=== PATIENT | female | born 1985 | race Caucasian/White ===

== ENCOUNTER 2016-12-31 09:17 | Emergency (ER) | payer BC, OTHER ==
[~2016-12-31] VITALS: Ht 172.7 cm; Wt 107.0 kg
[2016-12-31 09:19] VITALS: TEMP 36.6; Ht 172.7 cm; Wt 107.0 kg
[2016-12-31] MEDS ORDERED: ONDANSETRON INJ 2 MG/ML 2 ML VIAL ONE (09:36)
[2016-12-31] MEDS ORDERED: ONDANSETRON INJ 2 MG/ML 2 ML VIAL IV STA (09:39)
[2016-12-31 09:53] LABS: BASO % 0.1 %; BASO ABS # 0.01 K/uL (0-0.2); COMPLETE YES; EOS % 2.7 %; HEMATOCRIT 43.1 % (37-47); IG% 0.1 %; LYMPH % 20.8 %; LYMPH ABS # 1.63 K/uL (1.2-3.4); MEAN CELL VOLUME 81.8 fL (80-100); MEAN CORPUSCULAR HEMOGLOBIN 29.2 pg (25-34); MEAN CORPUSCULAR HGB CONC 35.7 g/dl (32-36); MEAN PLATELET VOLUME 12.5 fL (7.4-10.4); MONO % 5.2 %; NEUT % 71.1 %; PLATELET COUNT 168 K/uL (130-400); RED BLOOD COUNT 5.27 M/uL (4.2-5.4); WHITE BLOOD COUNT 7.82 K/uL (4.8-10.8)
[2016-12-31 10:10] LABS: BUN/CREATININE RATIO 19.4 (10-20); CALCIUM 9.3 mg/dl (8.5-10.1); CREATININE 0.8 mg/dl (0.60-1.20); POTASSIUM 3.4 mmol/L (3.5-5.1)
[2016-12-31 10:21] LABS: URINE APPEARANCE CLEAR (CLEAR); URINE COLOR DK YELLOW; URINE EPITHELIAL CELL AUTO >30 /lpf (0-5); URINE NITRITE NEG (NEG); URINE PH 5.5 (4.5-7.5); UROBILINOGEN NEG (NEG); ZZUR CULT IF INDIC CLEAN CATCH NO
[2016-12-31] MEDS ORDERED: ACET-1256 PO (10:25)
[2016-12-31 10:26] LABS: MANUAL MICROSCOPIC REQUIRED? NO; REVIEW REQ? NO; URINE BILIRUBIN NEG (NEG)
[2016-12-31] MEDS ORDERED: PROMETHAZINE HCL INJ 12.5 MG in SODIUM CHLORIDE 0.9% 50ML 50 ML IV STA (10:31)
[2016-12-31] MEDS ORDERED: MoRPHine SULFATE 4 MG/ML 1 ML CARP\\VIAL IV STA ×2 (10:31→12:13)
[2016-12-31] MEDS ORDERED: SODIUM CHLORIDE 0.9% 1000ML 1,000 ML IV STA (10:31)
--- NOTE | 2016-12-31 10:34 | EMERGENCY ROOM VISIT NOTE ---
History Report prepared by Pavan: Angie Montez Under the Supervision of: Dr. Clarisa Herrera M.D. First contact with patient: 09:53 Chief Complaint: ABDOMINAL PAIN Stated Complaint: ABD. PAIN Nursing Triage Summary: Patietn c/o right lower quadrant abdominal pain and frequent vomiting for a couple hours. Pt vomited 3 times within approx 5 minutes while RN in room. Patient denies urinary symptoms, fevers, diarrhea. History of Present Illness The patient is a 31 year old female who presents to the Emergency Room with complaints of persistent right lower abdominal pain that began this morning when she woke. The patient reports that she woke this morning with abdominal pain, nausea and vomiting. She states that she continually vomited for an hour. The patient denies any chance of , noting that she just ended her period, but additionally notes vaginal bleeding today. She denies any urinary symptoms or history of kidney stones. The patient reports right flank pain. She denies any previous surgeries on her abdomen. The patient denies any diarrhea. Source of History: patient Onset: this morning whne she woke Position: abdomen (RLQ) Timing: other (persistent) Associated Symptoms: + nausea, + vomiting, + back pain, No diarrhea, No urinary symptoms Note: Associated Symptoms: vaginal bleeding Review of Systems See HPI for pertinent positives & negatives. A total of 10 systems reviewed and were otherwise negative. Past Medical & Surgical Medical Problems: (1) No significant medical problems Surgical Problems: (1) No significant past surgical history Family History Cancer Diabetes mellitus Heart disease Kidney disease Kidney stones Lung disease Seizures Social History Smoking Status: Current Every Day Smoker Alcohol Use: occasionally Marital Status: single Housing Status: lives alone Occupation Status: employed Current/Historical Medications Scheduled PRN Acetaminophen (Tylenol), 1,000 MG PO UD PRN for Pain Hydrocodon/Acetaminophen 5MG/300MG (Vicodin (5MG/300MG)), 1-2 TAB PO Q6H PRN for Pain Allergies Coded Allergies: No Known Allergies (Unverified , 12/31/16) Physical Exam Vital Signs Date Time Temp Pulse Resp B/P (MAP) Pulse Ox O2 Delivery O2 Flow Rate FiO2 12/31/16 13:05 73 18 119/76 99 12/31/16 11:08 83 18 144/95 98 Room Air 12/31/16 10:42 82 18 123/83 97 Room Air 12/31/16 09:19 36.6 102 18 150/87 97 Room Air Physical Exam Vital signs reviewed. General: Well-appearing female, in no significant distress. HEENT: No scleral icterus, PERRLA, neck supple. Atraumatic. Cardiovascular: Regular rate and rhythm, no extra sounds. Pulmonary: Clear to auscultation bilaterally, normal work of breathing. Abdomen: Obese. Soft, right lower quadrant tenderness to palpation, positive right CVA tenderness, nondistended, positive bowel sounds. Musculoskeletal: Atraumatic, no peripheral edema. Neurologic: Patient awake alert and oriented x 3 Skin: Warm, dry, no rash Medical Decision & Procedures ER Provider Diagnostic Interpretation: CT results as stated below per my review and radiologist interpretation: CT SCAN OF THE ABDOMEN AND PELVIS WITHOUT CONTRAST CLINICAL HISTORY: Right lower quadrant abdominal pain. COMPARISON STUDY: No previous studies for comparison. TECHNIQUE: CT scan of the abdomen and pelvis was performed from the lung bases to the proximal femurs. Images are reviewed in the axial, sagittal, and coronal planes. IV contrast was not administered for this examination. A dose lowering technique was utilized adhering to the principles of ALARA. CT DOSE: 998.45 mGy.cm FINDINGS: Lower chest: The heart is normal in size and configuration, without pericardial effusion. The lung bases and pleural spaces are clear. Liver: The unenhanced liver is normal in size, contour, and attenuation. There is no intrahepatic biliary ductal dilatation. Gallbladder: Unremarkable. Spleen: Normal in size and attenuation. Pancreas: Unremarkable. Adrenal glands: Unremarkable. Kidneys: There are multiple right renal calculi. There is right sided hydronephrosis. There is right-sided perinephric stranding. There is a nonobstructing 3 mm calculus at the level of the right ureterovesical junction. Bowel: There are no transition zones indicate bowel obstruction. The appendix appears normal. There is no acute diverticulitis. Peritoneum: There is no intraperitoneal free air or abdominal ascites. Vasculature: The abdominal aorta is normal in course and caliber. Adenopathy: None. Pelvic viscera: There is a 17 mm right ovarian follicle. Skeletal structures: No destructive osseous lesions are seen. IMPRESSION: 1. Right-sided nephrolithiasis 2. 3 mm obstructing calculus at the level of the right ureterovesical junction 3. Normal appendix Electronically signed by: Howie Cat M.D. 12/31/2016 11:58 AM Dictated Date/Time: 12/31/2016 11:55 AM Laboratory Results 12/31/16 09:39 Red Blood Count 5.27, Mean Corpuscular Volume 81.8, Mean Corpuscular Hemoglobin 29.2, Mean Corpuscular Hemoglobin Concent 35.7, Mean Platelet Volume 12.5, Neutrophils (%) (Auto) 71.1, Lymphocytes (%) (Auto) 20.8, Monocytes (%) (Auto) 5.2, Eosinophils (%) (Auto) 2.7, Basophils (%) (Auto) 0.1, Neutrophils # (Auto) 5.55, Lymphocytes # (Auto) 1.63, Monocytes # (Auto) 0.41, Eosinophils # (Auto) 0.21, Basophils # (Auto) 0.01 12/31/16 09:39 Test 12/31/16 09:39 12/31/16 10:07 12/31/16 11:21 White Blood Count 7.82 K/uL (4.8-10.8) Red Blood Count 5.27 M/uL (4.2-5.4) Hemoglobin 15.4 g/dL (12.0-16.0) Hematocrit 43.1 % (37-47) Mean Corpuscular Volume 81.8 fL (80-100) Mean Corpuscular Hemoglobin 29.2 pg (25-34) Mean Corpuscular Hemoglobin Concent 35.7 g/dl (32-36) Platelet Count 168 K/uL (130-400) Mean Platelet Volume 12.5 fL (7.4-10.4) Neutrophils (%) (Auto) 71.1 % Lymphocytes (%) (Auto) 20.8 % Monocytes (%) (Auto) 5.2 % Eosinophils (%) (Auto) 2.7 % Basophils (%) (Auto) 0.1 % Neutrophils # (Auto) 5.55 K/uL (1.4-6.5) Lymphocytes # (Auto) 1.63 K/uL (1.2-3.4) Monocytes # (Auto) 0.41 K/uL (0.11-0.59) Eosinophils # (Auto) 0.21 K/uL (0-0.5) Basophils # (Auto) 0.01 K/uL (0-0.2) RDW Standard Deviation 39.2 fL (36.4-46.3) RDW Coefficient of Variation 13.1 % (11.5-14.5) Immature Granulocyte % (Auto) 0.1 % Immature Granulocyte # (Auto) 0.01 K/uL (0.00-0.02) Anion Gap 11.0 mmol/L (3-11) Est Creatinine Clear Calc Drug Dose 129.3 ml/min Estimated GFR () 113.1 Estimated GFR (Non- 97.6 BUN/Creatinine Ratio 19.4 (10-20) Calcium Level 9.3 mg/dl (8.5-10.1) Total Bilirubin 0.4 mg/dl (0.2-1) Aspartate Amino Transf (AST/SGOT) 17 U/L (15-37) Alanine Aminotransferase (ALT/SGPT) 37 U/L (12-78) Alkaline Phosphatase 80 U/L (45-117) Total Protein 7.8 gm/dl (6.4-8.2) Albumin 4.0 gm/dl (3.4-5.0) Globulin 3.8 gm/dl (2.5-4.0) Albumin/Globulin Ratio 1.0 (0.9-2) Lipase 174 U/L (73-393) Urine Color DK YELLOW Urine Appearance CLEAR (CLEAR) Urine pH 5.5 (4.5-7.5) Urine Specific [place] 1.030 (1.000-1.030) Urine Protein 2+ (NEG) Urine Glucose (UA) NEG (NEG) Urine Ketones 4+ (NEG) Urine Occult Blood 3+ (NEG) Urine Nitrite NEG (NEG) Urine Bilirubin NEG (NEG) Urine Urobilinogen NEG (NEG) Urine Leukocyte Esterase NEG (NEG) Urine WBC (Auto) 1-5 /hpf (0-5) Urine RBC (Auto) >30 /hpf (0-4) Urine Hyaline Casts (Auto) 5-10 /lpf (0-5) Urine Epithelial Cells (Auto) >30 /lpf (0-5) Urine Bacteria (Auto) NEG (NEG) Urine Test NEG (NEG) Laboratory results per my review. Medications Administered Medications (Trade) Dose Ordered Sig/Power Route Start Time Stop Time Status Last Admin Dose Admin Ondansetron HCl (Zofran Inj) 4 mg STK-MED ONCE .ROUTE 12/31/16 09:36 12/31/16 09:37 DC 12/31/16 09:38 4 MG Morphine Sulfate (MoRPHine SULFATE INJ) 4 mg NOW STAT IV 12/31/16 10:31 12/31/16 10:33 DC 12/31/16 10:41 4 MG Promethazine HCl 12.5 mg/Sodium Chloride 50.5 ml @ 204 mls/hr NOW STAT IV 12/31/16 10:31 12/31/16 10:45 DC 12/31/16 11:02 204 MLS/HR Sodium Chloride 1,000 ml @ 999 mls/hr Q1H1M STAT IV 12/31/16 10:31 12/31/16 11:31 DC 12/31/16 11:03 999 MLS/HR Ketorolac Tromethamine (Toradol Inj) 30 mg NOW STAT IV 12/31/16 12:13 12/31/16 12:14 DC 12/31/16 12:25 30 MG Morphine Sulfate (MoRPHine SULFATE INJ) 4 mg NOW STAT IV 12/31/16 12:13 12/31/16 12:14 DC 12/31/16 12:26 4 MG ED Course 0936: Ordered Zofran Inj 4 mg .route. 1030: Past medical records reviewed. The patient was evaluated in room C9. A complete history and physical examination was performed. 1031: Ordered Sodium Chloride 1000 ml @ 999 mls/hr IV, Promethazine HCl 12.5 mg/ Sodium Chloride 50.5 ml @ 204 mls/hr IV, Ordered Morphine Sulfate 4 mg IV. 1213: Ordered Morphine Sulfate 4 mg IV, Toradol Inj 30 mg IV. 1225: I reevaluated the patient and she is doing well. I discussed the exam findings with her and I discussed the treatment plan. She verbalized complete understanding and agreement. She is ready to go home. Medical Decision Differential diagnosis: Etiologies such as appendicitis, diverticulitis, PUD, biliary pathology, UTI, pancreatitis, obstruction, mesenteric ischemia, aortic pathology, infections, inflammatory bowel disease, renal colic, as well as others were entertained. Medication Reconciliation: I attest that I have personally reviewed the patient' s current medication list. Blood Pressure Screening: Patient was found to have normal blood pressure on screening and does not require follow-up. This pt was evaluated and appeared to be in significant discomfort. Pt was vomiting despite zofran. IVF were initiated, given IV phenergan and morphine. CT abd/pelvis is c/w a 3 mm right ureteral calculus. Pt was given toradol 30 mg IV and morphine 4 mg IV. UA is c/w stone, no significant evidence of infection. Pt was d/c with Rx for norco. She was advised to use ibuprofen as needed. Pt will seek urologic f/u and to establish with a PCP. She will return to the ED for worsening of symptoms or any medical concerns. Impression Primary Impression: Right ureteral calculus Scribe Attestation The scribe's documentation has been prepared under my direction and personally reviewed by me in its entirety. I confirm that the note above accurately reflects all work, treatment, procedures, and medical decision making performed by me. Departure Information Dispostion Home / Self-Care Prescriptions Hydrocodon/Acetaminophen 5MG/300MG (VICODIN (5MG/300MG)) 1 Tab Tab 1-2 TAB PO Q6H Y for Pain, #20 TAB Prov: Clarisa Herrera M.D. 12/31/16 Referrals No Doctor, Assigned (PCP) Forms Call Back Authorization, HOME CARE DOCUMENTATION FORM, IMPORTANT VISIT INFORMATION Patient Instructions Kidney Stones Expectant Therapy, My [facility] Additional Instructions Diagnosis: Right ureteral stone, renal colic Ibuprofen 600 mg every 6 hours as needed for pain with food. [place] one to 2 tabs every 6 hours as needed for more severe pain. Do not drive or take Tylenol with this medication. Drink plenty of clear fluids. Follow-up with your primary care physician this week for reevaluation. Return to the ER for worsening of symptoms or any medical concerns.
--- NOTE | 2016-12-31 11:59 | DIAGNOSTIC IMAGING REPORT ---
CT SCAN OF THE ABDOMEN AND PELVIS WITHOUT CONTRAST CLINICAL HISTORY: Right lower quadrant abdominal pain. COMPARISON STUDY: No previous studies for comparison. TECHNIQUE: CT scan of the abdomen and pelvis was performed from the lung bases to the proximal femurs. Images are reviewed in the axial, sagittal, and coronal planes. IV contrast was not administered for this examination. A dose lowering technique was utilized adhering to the principles of ALARA. CT DOSE: 998.45 mGy.cm FINDINGS: Lower chest: The heart is normal in size and configuration, without pericardial effusion. The lung bases and pleural spaces are clear. Liver: The unenhanced liver is normal in size, contour, and attenuation. There is no intrahepatic biliary ductal dilatation. Gallbladder: Unremarkable. Spleen: Normal in size and attenuation. Pancreas: Unremarkable. Adrenal glands: Unremarkable. Kidneys: There are multiple right renal calculi. There is right sided hydronephrosis. There is right-sided perinephric stranding. There is a nonobstructing 3 mm calculus at the level of the right ureterovesical junction. Bowel: There are no transition zones indicate bowel obstruction. The appendix appears normal. There is no acute diverticulitis. Peritoneum: There is no intraperitoneal free air or abdominal ascites. Vasculature: The abdominal aorta is normal in course and caliber. Adenopathy: None. Pelvic viscera: There is a 17 mm right ovarian follicle. Skeletal structures: No destructive osseous lesions are seen. IMPRESSION: 1. Right-sided nephrolithiasis 2. 3 mm obstructing calculus at the level of the right ureterovesical junction 3. Normal appendix Electronically signed by: Howie Cat M.D. 12/31/2016 11:58 AM Dictated Date/Time: 12/31/2016 11:55 AM
[2016-12-31] MEDS ORDERED: KETOROLAC TROMETHAMINE 30 MG/ML VIAL IV STA (12:13)
[2016-12-31] MEDS ORDERED: HYDR-5688 PO (12:22)
[2016-12-31] MEDS ORDERED: HYDR-3419 PO (12:46)
[2016-12-31 13:05] VITALS: BP 119/76; PULSE 73; O2SAT 99
== END 2016-12-31 13:07 | disposition home or self-care (01) ==
LOC: C.EDB 09:20 → C.EDC 13:07
DX: N20.1 Calculus of ureter (principal); F17.200 Nicotine dependence, unspecified, uncomplicated; Z83.3 Family history of diabetes mellitus; Z82.0 Family history of epilepsy and other diseases of the nervous system; Z84.1 Family history of disorders of kidney and ureter

== ENCOUNTER 2017-06-03 10:03 | Emergency (ER) | payer BC ==
[~2017-06-03] VITALS: Ht 175.3 cm; Wt 108.0 kg
[~2017-06-03 10:03] MED LIST: ACET-1256 PO; HYDR-3419 PO
[2017-06-03 10:06] VITALS: TEMP 36.6; Ht 175.3 cm; Wt 108.0 kg
--- NOTE | 2017-06-03 10:41 | DIAGNOSTIC IMAGING REPORT ---
L ANKLE MIN 3 VIEWS ROUTINE CLINICAL HISTORY: Left ankle pain following injury. COMPARISON: None FINDINGS: Alignment of the left ankle is anatomic. There is no acute fracture. Talar dome is intact. Note is made of minimal posterior calcaneal spurring. IMPRESSION: No acute fracture or dislocation of the left ankle. Electronically signed by: Juan Rahman M.D. 06/03/2017 10:40 AM Dictated Date/Time: 06/03/2017 10:39 AM
[2017-06-03] MEDS ORDERED: ASCA500 PO (10:54)
[2017-06-03] MEDS ORDERED: MULT1PAK42 PO (10:54)
[2017-06-03 11:27] VITALS: BP 137/95; PULSE 77; O2SAT 97
--- NOTE | 2017-06-03 15:45 | EMERGENCY ROOM VISIT NOTE ---
History First contact with patient: 10:08 Chief Complaint: FOOT PAIN Stated Complaint: FOOT AND ANKLE PAIN History of Present Illness The patient is a 31 year old female who presents to the Emergency Room with complaints of left foot and ankle pain after she twisted the ankle walking down steps this morning. The patient reports pain mostly over the lateral aspect of the ankle. She denies any pain extending into the leg. She denies paresthesias or numbness of the foot or toes. The patient denies any prior history of left ankle injuries, and rates her discomfort a 4 out of 10 with weightbearing. Review of Systems 10 system review was performed and was negative except for pertinent positives and negatives as indicated in history of present illness Past Medical/Surgical History Medical Problems: (1) No significant medical problems Surgical Problems: (1) No significant past surgical history Family History Cancer Diabetes mellitus Heart disease Kidney disease Kidney stones Lung disease Seizures Social History Smoking Status: Current Every Day Smoker Alcohol Use: occasionally Marital Status: single Housing Status: lives alone Occupation Status: employed Current/Historical Medications Scheduled Ascorbic Acid (Vitamin C), 1 TAB PO DAILY Multiple Vitamins W/ Minerals (Emergen-C Immune), 1 DOSE PO DAILY Physical Exam Vital Signs Date Time Temp Pulse Resp B/P (MAP) Pulse Ox O2 Delivery O2 Flow Rate FiO2 06/03/17 11:27 77 18 137/95 97 06/03/17 10:06 36.6 91 16 146/95 99 Physical Exam CONSTITUTIONAL: Healthy and well nourished. Alert and oriented X 3 with positive affect. She does not appear in any acute distress. HEENT: Normocephalic, atraumatic. Pupils equal, round and reactive. NECK: Full active range of motion without discomfort. MUSCULOSKELETAL: Examination of the left ankle shows lateral edema without any ecchymosis or open wounds. The patient is tender over the lateral malleolus and ligament. Minimal tenderness over the deltoid ligament. Negative anterior draw. Patient has no focal tenderness over the dorsal midfoot, metatarsals, phalanges, calcaneus or Achilles tendon. Pedal pulses are intact. INTEGUMENTARY: No rash or other significant dermatologic conditions noted. NEUROLOGIC: No focal neurologic deficits noted. Left foot and toes are sensory intact. Medical Decision & Procedures ER Provider Diagnostic Interpretation: My interpretation of left ankle x-rays does not show any acute fractures, dislocation or ankle mortise asymmetry. Radiologist report is as follows: L ANKLE MIN 3 VIEWS ROUTINE CLINICAL HISTORY: Left ankle pain following injury. COMPARISON: None FINDINGS: Alignment of the left ankle is anatomic. There is no acute fracture. Talar dome is intact. Note is made of minimal posterior calcaneal spurring. IMPRESSION: No acute fracture or dislocation of the left ankle. ED Course Patient history and physical exam were performed. Nurse's notes were reviewed. Vital signs were reviewed and were normal. The patient refused any analgesics while in the emergency department. X-rays of the left ankle were normal. The patient refused crutches. She was encouraged to intermittently apply ice and elevate the ankle for swelling and pain. She was encouraged to minimize weight-bearing until symptoms improve. She was instructed to perform range of motion exercises of the ankle to prevent stiffness. She will may take ibuprofen and Tylenol in alternating fashion as needed for additional pain relief. She was encouraged to follow-up with orthopedics if symptoms are not improving within the next week. The patient was happy with plan of care, voiced understanding of all discharge instructions, and rated her discomfort a 3 out of 10 at the conclusion of my exam. Medical Decision Medication Reconcilliation Current Medication List: was personally reviewed by me Blood Pressure Screening Patient's blood pressure: Normal blood pressure Impression Primary Impression: Left ankle sprain Departure Information Dispostion Home / Self-Care Condition GOOD Referrals Minesh Perez M.D. Forms HOME CARE DOCUMENTATION FORM, IMPORTANT VISIT INFORMATION Patient Instructions My [employer] Additional Instructions Intermittently apply ice and elevate ankle for swelling and pain. Perform range of motion exercises to prevent ankle stiffness. Wear an ankle brace when up and about - remove when sedentary or when sleeping. Ibuprofen 800 mg and/or Tylenol 1000 mg every 8 hours. You may also alternate these medications for more effective pain relief: Ibuprofen --4 HRS--> Tylenol --4 HRS--> ibuprofen --4 HRS--> Tylenol .... Follow-up with orthopedics (Dr. Perez) if symptoms are not improving within the next week.
== END 2017-06-03 11:28 | disposition home or self-care (01) ==
LOC: C.EDB 10:04
DX: S93.402A Sprain of unspecified ligament of left ankle, initial encounter (principal); X50.1XXA Overexertion from prolonged static or awkward postures, initial encounter; Y92.89 Other specified places as the place of occurrence of the external cause; Z80.9 Family history of malignant neoplasm, unspecified; Z83.3 Family history of diabetes mellitus; Z82.49 Family history of ischemic heart disease and other diseases of the circulatory system; Z84.1 Family history of disorders of kidney and ureter; Z83.6 Family history of other diseases of the respiratory system; F17.210 Nicotine dependence, cigarettes, uncomplicated